=== PATIENT | female | born 1985 | race Caucasian/White ===

== ENCOUNTER 2020-11-20 15:06 | Emergency (ER) | payer OTHER, MEDICARE ==
[~2020-11-20] VITALS: Ht 167.6 cm; Wt 74.8 kg
[2020-11-20] MEDS ORDERED: NORVASC 2.5 MG2.5 M1 PO (15:32)
[2020-11-20] MEDS ORDERED: LIPITOR10 MG PO (15:32)
[2020-11-20] MEDS ORDERED: ALLERGY MED (15:33)
[2020-11-20] MEDS ORDERED: ASA81BEC PO (15:33)
[2020-11-20 16:02] LABS: URINE BLOOD 3+ (Negative); URINE COLOR YELLOW; URINE GLUCOSE-RANDOM NEGATIVE (Negative); URINE KETONES 1+ (Negative); URINE LEUKOCYTES-REFLEX TRACE (Negative); URINE NITRITE-REFLEX NEGATIVE (Negative); URINE PROTEIN 1+ (Negative); URINE SPECIFIC GRAVITY >= 1.030 (1.005-1.030)
[2020-11-20 16:03] LABS: ICTOTEST (BILI CONFIRMATORY) Negative (Negative); URINE BILIRUBIN 2+ (Negative); URINE CLARITY HAZY
[2020-11-20 16:06] LABS: SQUAMOUS 0-3 Few /LPF (0-3)
[2020-11-20 16:07] LABS: BACTERIA-REFLEX 1-9 Few /HPF (None Seen); CRYSTALS None Seen /LPF (None Seen); HYALINE CASTS 0-3 Few /LPF (None Seen); MUCUS >6 Heavy strn/LPF (None Seen); URINE RBC >20 Many /HPF (0-2); URINE WBC-REFLEX 0-5 Rare /HPF (0-5)
[2020-11-20 16:28] LABS: ABSOLUTE BASOPHILS 0.1 thou/uL (0.0-0.2); ABSOLUTE EOSINOPHILS 0.1 thou/uL (0.0-0.7); ABSOLUTE LYMPHOCYTES 1.6 thou/uL (0.8-5.3); ABSOLUTE MONOCYTES 0.7 thou/uL (0.0-1.2); ABSOLUTE NEUTROPHILS 10.3 thou/uL (1.6-8.1); BASOPHILS 0.5 %; EOSINOPHILS 0.6 %; HEMOGLOBIN 9.8 gm/dL (12.0-15.0); LYMPHOCYTES 12.8 %; MCH 22.8 pg (26.0-34.0); MCHC 31.7 g/dL (28.0-37.0); MONOCYTES 5.4 %; MPV 6.9 fl. (7.2-11.1); NUCLEATED RBCS 0 /100WBC; PLATELET COUNT* 657 thou/uL (150-400); POLYS 80.7 %; RDW-CV 18.3 % (10.5-14.5); WBC 12.8 thou/uL (4.0-11.0)
[2020-11-20 16:35] LABS: CALCIUM 8.8 mg/dL (8.5-10.1); CREATININE 0.7 mg/dL (0.6-1.3); POTASSIUM 3.4 mmol/L (3.5-5.1)
[2020-11-20 16:40] LABS: ALBUMIN 3.1 g/dL (3.4-5.0); TOTAL BILIRUBIN 0.3 mg/dL (<0.1-1.0); TOTAL PROTEIN 7.8 g/dL (6.4-8.2)
[2020-11-20 17:00] LABS: PLATELET ESTIMATE INCREASED
[2020-11-20 17:01] LABS: ANISOCYTOSIS 1+
[2020-11-20 17:02] LABS: HYPOCHROMASIA 1+; MICROCYTES 1+
[2020-11-20] MEDS ORDERED: APAP W/CODEINE1 TA2 PO ×2 (18:46→19:01)
[2020-11-20] MEDS ORDERED: NAPROSYN500 MG PO ×2 (18:47→19:01)
[2020-11-20 19:05] VITALS: BP 120/90
== END 2020-11-20 19:06 | disposition home or self-care (01) ==
LOC: M.ERS 15:06
PROVIDERS: Physician Assistant
DX: N93.8 Other specified abnormal uterine and vaginal bleeding (principal); Z86.73 Personal history of transient ischemic attack (TIA), and cerebral infarction without residual deficits; Z79.899 Other long term (current) drug therapy; Z79.82 Long term (current) use of aspirin